=== PATIENT | male | born 1970 | race Caucasian/White ===

== ENCOUNTER → 2019-05-01 | Outpatient (CLI) | payer BC ==
--- NOTE | 2019-05-01 15:55 | PCVCIMAG ---
APPROVED REPORT Study performed: 05/01/2019 13:52:28 EXAM: Comprehensive 2D, Doppler, and color-flow Echocardiogram Patient Location: Echo lab Room #: 2Status: routine BSA: 2.19 HR: 78 bpmBP: 122/74 mmHg Rhythm: RBBB Other Information Study Quality: Fair Risk Factors: Cardiac Risk Factors: Hyperlipidemia Indications Marfan's syndrome, Aortic valve sparing aortic root replacement 2D Dimensions IVSd: 9.83 (7-11mm)LVOT Diam: 26.22 (18-24mm) LVDd: 48.49 mm PWd: 9.72 (7-11mm)Ascending Ao: 27.53 (22-36mm) LVDs: 29.87 (25-40mm) Left Atrium: 33.48 (27-40mm) Aortic Root: 23.86 mm LV Single Plane 4CH: 59.10 % LV Single Plane 2CH: 60.74 % Biplane EF: 59.3 % Volumes Left Atrial Volume (Systole) Single Plane 4CH: 20.72 mLSingle Plane 2CH: 29.12 mL Biplane LA Volume: 26.00 mLLA ESV Index: 12.00 mL/m2 Aortic Valve AoV Peak Vaughn.: 1.20 m/s AO Peak Gr.: 5.77 mmHg Mitral Valve E/A Ratio: 1.0 MV Decel. Time: 163.73 ms MV E Max Vaughn.: 0.70 m/s MV A Vaughn.: 0.69 m/s IVRT: 93.43 ms TDI E/Lateral E': 5.00E/Medial E': 10.00 Medial E' Vaughn.: 0.07 m/s Lateral E' Vaughn.: 0.14 m/s Pulmonary Valve PV Peak Vaughn.: 0.98 m/sPV Peak Gr.: 3.86 mmHg Tricuspid Valve TR Peak Vaughn.: 1.36 m/s TR Peak Gr.: 7.42 mmHg TV Vmax: 0.82 m/sPA Pressure: 14.00 mmHg Left Ventricle The left ventricle is normal size. There is normal LV segmental wall motion. There is normal left ventricular wall thickness. Left ventricular systolic function is normal. The left ventricular ejection fraction is within the normal range. LVEF is 55-60%. The left ventricular diastolic function is normal. Right Ventricle Right ventricle is mildly dilated. The right ventricular systolic function is normal. Atria The left atrium size is normal. Right atrium is mildly dilated. Aortic Valve Aortic valve is trileaflet. Trace aortic regurgitation There is no aortic valvular stenosis. Mitral Valve The mitral valve is normal in structure. There is no mitral valve regurgitation noted. No evidence of mitral valve stenosis. Tricuspid Valve The tricuspid valve is normal in structure. Trace tricuspid regurgitation. Pulmonic Valve The pulmonary valve is normal in structure. Trace pulmonic regurgitation. Great Vessels Aortic root replacement is seen Ascending aorta is normal in caliber. Aortic arch is normal in caliber. IVC is normal in size and collapses >50% with inspiration. Pericardium There is no pericardial effusion. There is no pleural effusion. <Conclusion> Left ventricular systolic function is normal. There is normal LV segmental wall motion. LVEF is 55-60%. Normal diastolic function Aortic valve is trileaflet. No stenosis. Trace aortic regurgitation The mitral valve is normal in structure. No mitral valve regurgitation Aortic root replacement is seen. Ascending aorta is normal in caliber. Pulmonary pulmonary artery pressure could not be reliably ascertained There is no pericardial effusion.
== END | disposition home or self-care (01) ==
LOC: PCVCIMAG 13:57
PROVIDERS: ATTEND Internal Medicine
DX: Q87.40 Marfan syndrome, unspecified (principal); I77.810 Thoracic aortic ectasia; Z87.891 Personal history of nicotine dependence; Z79.82 Long term (current) use of aspirin
CPT/HCPCS: 93306